=== PATIENT | male | born 1965 | race Caucasian/White ===

== ENCOUNTER 2023-09-30 18:50 | Inpatient (IN) ==
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
[2023-09-30 19:36] LABS: iSTAT Creatinine 1.2 mg/dl (0.6-1.3); iSTAT Ionized Calcium 1.15 mmol/l (1.12-1.32); iSTAT Potassium 3.8 mmol/L (3.3-5.0)
[2023-09-30 19:37] LABS: Base Excess VBG 1.3 mEq/L; HCO3 VBG 27 mmol/L; Oxygen Saturation VBG < 60.0 %; PCO2 VBG 47 mmHg (38-50); PO2 VBG 22 mmHg; pH VBG 7.37 (7.36-7.41)
[2023-09-30] MEDS: SODIUM CHLORIDE 0.9% 1,000 ML IV ONE ×2 (19:45→21:14)
[2023-09-30 19:47] LABS: Basophils # (auto) 0.06 K/uL (0.00-0.20); Basophils % (auto) 0.5 %; Eosinophils # (auto) 0.26 K/uL (0.00-0.50); Hemoglobin 16.4 g/dl (14.0-18.0); Immature Granulocytes # (auto) 0.04 K/uL (0.01-0.20); Immature Granulocytes % (auto) 0.3 %; Lymphocytes # (auto) 2.49 K/uL (1.20-3.40); Lymphocytes % (auto) 19.5 %; Mean Corpuscular Hemoglobin 27.7 pg (25.0-34.0); Mean Corpuscular Hgb Conc 34.2 g/dL (32.0-36.0); Mean Corpuscular Volume 81.2 fL (80.0-100.0); Mean Platelet Volume 10.3 fL (9.4-12.4); Monocytes # (auto) 0.84 K/uL (0.11-0.59); Monocytes % (auto) 6.6 %; Neutrophils # (auto) 9.06 K/uL (1.40-6.50); Neutrophils % (auto) 71.1 %; Platelet Count 273 K/uL (130-400); RDW Coefficient of Variation 12.4 % (11.5-14.5); RDW Standard Deviation 36.5 fL (36.4-46.3); Red Blood Count 5.91 M/uL (4.70-6.10); White Blood Count 12.75 K/ul (4.8-10.8)
[2023-09-30 19:57] LABS: Albumin Level 4.8 gm/dl (3.4-5.0); BUN Creatinine Ratio 10.7 (10-20); Bilirubin Direct 0.2 mg/dl (0-0.2); Bilirubin,Total 1.1 mg/dl (0.2-1.0); Calcium 10.1 mg/dl (8.6-10.3); Creatinine Clr Calc Pharmacy 81.3 ml/min; Est GFR (African American) 69.6 ml/min; Potassium 5.6 mmol/L (3.5-5.1); Total Protein 8.1 gm/dl (6.0-8.3)
[2023-09-30 20:03] LABS: Troponin I High Sensitivity 4.6 pg/ml (0-20)
[2023-09-30 20:06] LABS: Partial Thromboplastin Ratio 0.9; Partial Thromboplastin Time 23 Seconds (21-31); Prothrombin Time 10.8 Seconds (9.0-12.0)
--- NOTE | 2023-09-30 20:33 | CT Scan Report ---
Exam(s): CTA CHEST IV Amt: 118 ml optiray 320 EXAM: CT Angiography Chest With Intravenous Contrast CLINICAL HISTORY: Reason for exam: PE. TECHNIQUE: Axial computed tomographic angiography images of the chest with intravenous contrast. CTDI is 28 mGy and DLP is 1529 mGy-cm. Automated exposure control was utilized for the study. A dose lowering technique was utilized adhering to the principles of ALARA. MIP reconstructed images were created and reviewed. COMPARISON: None FINDINGS: Pulmonary arteries: Unremarkable. No pulmonary embolus identified. Aorta: No acute findings. No aortic aneurysm or dissection. Lungs: Mild dependent atelectasis bilaterally. No focal consolidation. Pleural space: Unremarkable. No significant effusion. No pneumothorax. Heart: Unremarkable. No cardiomegaly. No significant pericardial effusion. No evidence of RV dysfunction. Mediastinum: Small hiatal hernia. Bones/joints: Degenerative changes of the spine. No acute fracture. No dislocation. Soft tissues: Unremarkable. Lymph nodes: Unremarkable. No enlarged lymph nodes. IMPRESSION: 1. No pulmonary embolus identified. 2. No aortic aneurysm or dissection. 3. No acute pulmonary parenchymal abnormality identified. Electronically signed by: Agnes Adair M.D. 09/30/23 20:32 PM
--- NOTE | 2023-09-30 20:35 | CT Scan Report ---
Exam(s): CT ABDOMEN + PELVIS With Contrast IV Amt: 118 ml optiray 320 EXAM: CT Abdomen and Pelvis With Intravenous Contrast CLINICAL HISTORY: Reason for exam: syncope. TECHNIQUE: Axial computed tomography images of the abdomen and pelvis with intravenous contrast. CTDI is 26.91 mGy and DLP is 1529 mGy-cm. Automated exposure control was utilized for the study. A dose lowering technique was utilized adhering to the principles of ALARA. CONTRAST: Patient received 118 ml optiray 320 of IV contrast COMPARISON: None FINDINGS: Lung bases: Mild dependent atelectasis bilaterally. Mediastinum: Small hiatal hernia. ABDOMEN: Liver: Unremarkable. No mass. Gallbladder and bile ducts: Cholelithiasis. No ductal dilation. Pancreas: Unremarkable. No mass. No ductal dilation. Spleen: Small splenule. Adrenals: Nonspecific small left adrenal nodule. Kidneys and ureters: Excreting contrast in the renal collecting systems. No hydronephrosis. Stomach and bowel: Mild prominence of the ashby of the ascending colon and transverse colon may be secondary to under distention. Colitis is not excluded. No small bowel obstruction. PELVIS: Appendix: Normal appendix. Bladder: Unremarkable. No mass. Reproductive: Unremarkable as visualized. ABDOMEN and PELVIS: Intraperitoneal space: Unremarkable. No free air. No significant fluid collection. Bones/joints: Degenerative changes of the spine. No acute fracture. No dislocation. Soft tissues: Small fat-containing bilateral inguinal hernias. Small fat-containing umbilical hernia. Vasculature: Unremarkable. No abdominal aortic aneurysm. Lymph nodes: Unremarkable. No enlarged lymph nodes. IMPRESSION: 1. Mild prominence of the ashby of the ascending colon and transverse colon may be secondary to under distention. Colitis is not excluded. 2. Cholelithiasis. Electronically signed by: Agnes Adair M.D. 09/30/23 20:34 PM
--- NOTE | 2023-09-30 20:38 | CT Scan Report ---
Exam(s): CT C SPINE EXAM: CT Cervical Spine Without Intravenous Contrast CLINICAL HISTORY: Reason for exam: fall. TECHNIQUE: Axial computed tomography images of the cervical spine without intravenous contrast. CTDI is 26.6 mGy and DLP is 608 mGy-cm. Automated exposure control was utilized for the study. A dose lowering technique was utilized adhering to the principles of ALARA. COMPARISON: None FINDINGS: Bones: Normal alignment. No acute fracture or bony lesion. Disc spaces: No subluxation. Mild degenerative changes of the spine. Soft tissues: Normal. Other: Paranasal sinus disease. IMPRESSION: No acute traumatic abnormality. Electronically signed by: Agnes Adair M.D. 09/30/23 20:37 PM
--- NOTE | 2023-09-30 20:39 | CT Scan Report ---
Exam(s): CT HEAD Without Contrast EXAM: CT Head Without Intravenous Contrast CLINICAL HISTORY: Reason for exam: syncope. TECHNIQUE: Axial computed tomography images of the head/brain without intravenous contrast. CTDI is 65.32 mGy and DLP is 1098 mGy-cm. Automated exposure control was utilized for the study. A dose lowering technique was utilized adhering to the principles of ALARA. COMPARISON: None FINDINGS: Brain: No acute infarct or hemorrhage. No extra-axial fluid collection. No mass effect or midline shift. Ventricles and sulci: Normal. No ventriculomegaly or intraventricular hemorrhage. Bones: Normal. No bony lesion or acute fracture. Subcutaneous tissues: Normal. Sinuses: Normal. No air-fluid levels or mucosal thickening. Mastoid air cells: Normal. Orbits: Grossly unremarkable. IMPRESSION: No acute intracranial abnormality. Electronically signed by: Agnes Adair M.D. 09/30/23 20:38 PM
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
[2023-09-30 21:08] LABS: Appearance Urine Clear (Clear); Bilirubin Urine Negative (Negative); Blood Urine Negative (Negative); Color Urine Yellow; Glucose Urine UA Negative (Negative); Ketones Urine Negative (Negative); Leukocyte Esterase Urine Negative (Negative); Nitrite Urine Negative (Negative); Protein Urine Negative (Negative); Specific Gravity Urine > 1.045 (1.000-1.030); Urobilinogen Urine Negative (Negative)
[2023-09-30] MEDS: ACETAMINOPHEN 1,000 MG/100 ML VIAL IV STA (22:04)
[2023-09-30 22:06] LABS: Thyroid Stimulating Hormone 10.068 uIu/ml (0.300-4.500)
[2023-09-30 22:41] LABS: T4 Free Thyroxine 0.5 ng/dl (0.61-1.60)
[2023-09-30 22:51] LABS: BUN Creatinine Ratio 11.6 (10-20); Calcium 8.8 mg/dl (8.6-10.3); Est GFR (African American) 84.1 ml/min; Est GFR (Non-African American) 72.5 ml/min; Potassium 4.6 mmol/L (3.5-5.1)
[2023-09-30] MEDS ORDERED: ONDANSETRON INJ 2 MG/ML 2 ML VIAL IV PRN (23:07)
[2023-09-30] MEDS: PLASMA-LYTE A 1,000 ML IV SCH (23:16)
--- NOTE | 2023-10-01 07:01 | XRay Report ---
XR ankle LT min 3V routine HISTORY: 58 years-old Male fall acute left ankle pain status post fall COMPARISON: None TECHNIQUE: 3 views of the left ankle FINDINGS: There is cortical irregularity involving the lateral anterior process calcaneus and dorsal talar neck . Mild to moderate circumferential soft tissue swelling of the ankle. Mild osteoarthritis. Small calc aneal enthesophytes. Os peroneum with type II accessory navicular. IMPRESSION: Subtle acute cortical chip fractures of the lateral anterior process calcaneus and dorsal talar neck. ACT 112: Negative or not required by law. The above report was generated using voice recognition software. It may contain grammatical, syntax o r spelling errors. Electronically signed by: Evens Davis M.D. 10/01/2023 7:00 AM
[2023-10-01] MEDS: CHOLECALCIFEROL 25 MCG (1000 UNITS) TAB PO SCH (08:18)
[2023-10-01] MEDS: ARMOUR THYROID 30 MG TAB PO SCH (08:18)
--- NOTE | 2023-10-01 08:21 | XRay Report ---
XR ankle RT min 3V routine HISTORY: 58 years-old Male fall acute right ankle pain status post fall COMPARISON: None TECHNIQUE: 3 views of the right ankle FINDINGS: Type II accessory navicular. Minimal osteoarthritis. Small calcaneal enthesophytes. No acute fracture , dislocation or osteochondral defect. Unremarkable soft tissues. IMPRESSION: No acute fracture or dislocation. ACT 112: Negative or not required by law. The above report was generated using voice recognition software. It may contain grammatical, syntax o r spelling errors. Electronically signed by: Evens Davis M.D. 10/01/2023 8:19 AM
--- NOTE | 2023-10-01 08:22 | XRay Report ---
XR chest 1V portable HISTORY: 58 years-old Male Sepsis COMPARISON: CTA chest of same day TECHNIQUE: AP view of the chest FINDINGS: Cardiomediastinal and hilar silhouettes are within normal limits. No pneumothorax or pleural effusion . The lungs appear clear. The bones appear grossly intact. IMPRESSION: No acute process. ACT 112: Negative or not required by law. The above report was generated using voice recognition software. It may contain grammatical, syntax o r spelling errors. Electronically signed by: Evens Davis M.D. 10/01/2023 8:20 AM
--- NOTE | 2023-10-01 10:19 | Electrocardiogram Report ---
Test Reason : Blood Pressure : */* mmHG Vent. Rate : 84 BPM Atrial Rate : 84 BPM P-R Int : 160 ms QRS Dur : 102 ms QT Int : 388 ms P-R-T Axes : 35 -25 59 degrees QTcB Int : 458 ms Normal sinus rhythm Minimal voltage criteria for LVH, may be normal variant ( R in aVL ) Nonspecific T wave abnormality Abnormal ECG No previous ECGs available Confirmed by Eric Urban ([id number]) on 10/01/2023 10:18:44 AM Referred By: [facility] Confirmed By: Eric Urban
--- NOTE | 2023-10-01 11:41 | XCELERA ---
[id number] [id number]
[2023-10-01 13:10] LABS: Basophils # (auto) 0.04 K/uL (0.00-0.20); Basophils % (auto) 0.3 %; Eosinophils # (auto) 0.13 K/uL (0.00-0.50); Eosinophils % (auto) 0.9 %; Hematocrit (blood only) 42.5 % (42.0-52.0); Hemoglobin 14.7 g/dl (14.0-18.0); Immature Granulocytes # (auto) 0.05 K/uL (0.01-0.20); Immature Granulocytes % (auto) 0.3 %; Lymphocytes # (auto) 2.68 K/uL (1.20-3.40); Lymphocytes % (auto) 18.5 %; Mean Corpuscular Hemoglobin 28.1 pg (25.0-34.0); Mean Corpuscular Hgb Conc 34.6 g/dL (32.0-36.0); Mean Corpuscular Volume 81.3 fL (80.0-100.0); Mean Platelet Volume 10.4 fL (9.4-12.4); Monocytes # (auto) 1.23 K/uL (0.11-0.59); Monocytes % (auto) 8.5 %; Neutrophils # (auto) 10.36 K/uL (1.40-6.50); Neutrophils % (auto) 71.5 %; Platelet Count 259 K/uL (130-400); RDW Coefficient of Variation 12.5 % (11.5-14.5); Red Blood Count 5.23 M/uL (4.70-6.10); White Blood Count 14.49 K/ul (4.8-10.8)
[2023-10-01 13:28] LABS: BUN Creatinine Ratio 12.2 (10-20); Calcium 9.2 mg/dl (8.6-10.3); Creatinine Clr Calc Pharmacy 128.9 ml/min; Est GFR (African American) 113.8 ml/min; Est GFR (Non-African American) 98.2 ml/min
--- NOTE | 2023-10-01 14:20 | Orthopedic Consultation ---
Date of Service October 01, 2023 Assessment & Plan (1) Left ankle sprain: He was seen and examined by Dr. Mckeon as well. He has an ankle sprain with 2 small avulsion fractures. He can weight bear as tolerated. We will order a compression stocking to help with swelling and a walking boot. He can use the boot for weight bearing for the next month. Okay to remove the boot at rest and for sleeping. Okay to work on ankle range of motion. Follow up as needed as outpatient. Apparently the retirement does not allow the walking boots so we will order an aso brace instead. History of Present Illness Reason for Consultation: . Requesting Physician: . Attending Physician: Luan Villalobos MD . Ector is a 58 year old patient admitted to the Hospitalist service after a syncopal episode yesterday in the shower at retirement. He complains of left ankle pain, mostly anterior and lateral. No other orthopedic complaints at this time. Allergies Allergy/AdvReac Type Severity Reaction Status Date / Time No Known Allergies Allergy Unverified 09/30/23 20:47 Home Medications Medication Instructions Recorded Confirmed Type atorvastatin 40 mg tablet 40 mg PO HS 09/30/23 09/30/23 History cholecalciferol (vitamin D3) 25 25 mcg PO DAILY 09/30/23 09/30/23 History mcg (1,000 unit) tablet (Vitamin D3) thyroid (pork) 90 mg tablet (MIXING TECHNICIAN 90 mg PO DAILY 09/30/23 09/30/23 History Thyroid) Past Med/Surg History Problem List Hyperkalemia Leukocytosis Hypothyroid High cholesterol Left ankle sprain (Acute) Right ankle sprain (Acute) Syncope (Acute) Medical History Anxiety disorder Social History Smoking Status: Never smoker Hx Alcohol Use: No Hx Substance Use: No Preferred Language: Citizen Of [place] Communication Ability: Effective Central Supply Manager Required: No Beliefs That Will Affect Care: Zoroastrian Zoroastrian Beliefs: Yazidi Current Living Situation: Other Current Living Situation Comment: [facility] Assistive Devices: None Review of Systems All systems reviewed & are unremarkable except as noted in HPI & below. Physical Exam .alert and oriented. NAD Left ankle/foot: +swelling, tender to palpation dorsal hindfoot and lateral ankle area. No tenderness medially. No defect in his achilles. Able to dorsiflex, plantarflex, invert and yusuf. NVI. Skin intact. Results & Data Results & Data Laboratory Results . Diagnostic Findings .xrays of the left ankle reviewed and show avulsion fractures likely from the talus and anterior process of the calcaneus. Ankle mortise is well aligned. PG Care Time/CCT Total # of Minutes Spent Total Time Spent with Patient: Total time spent is greater than 50% in coordination of care (as documented) at patient's floor/unit and/or counseling patient: Coding Level of Care Code 09760 IN/OBS CONSULT LVL 3,45M Diagnoses Left ankle sprain S93.402A Encounter type: initial encounter Involved ligament of ankle: unspecified ligament (1) Left ankle sprain Encounter type: initial encounter Involved ligament of ankle: unspecified ligament Qualified Code(s): S93.402A - Sprain of unspecified ligament of left ankle, initial encounter
--- NOTE | 2023-10-01 17:13 | Hospitalist Progress Note ---
Date of Service October 01, 2023 Assessment & Plan (1) Syncope: Plan: neurocardiogenic/vasovagal type physiology had evidence of such based on prodromal symptoms, circumstances (hot shower), elevated Cr and K upon presentation suggesting intravascular volume depletion, etc thus far telemetry, EKG, echo, CTA chest without other cause of his event could consider 30-day monitor but uncertain if that could be done in usp setting and uncertain it would shed more light on alternative etiologies continue hydration overnight (2) Leukocytosis: Plan: stress response to #1? thus far no evidence on exam, extensive imaging, etc that would suggest an infectious etiology follow temps, etc (3) Hyperkalemia: Plan: 2nd DIPIKA - resolved (4) Hypothyroid: Plan: decompensated will inquire about his compliance with current thyroid replacement if compliant will advise increase in dose (5) High cholesterol: Plan: Continue atorvastatin CPK only scantly elevated (6) DIPIKA (acute kidney injury): Plan: Peak Cr 1.3 now Cr <1 2nd to prerenal causes/intra-vascular volume depletion resolved (7) Avulsion fracture of left ankle: Plan: appreciate ortho consultation walking boot or ASO brace advised check 25-OH vit D level am Admission and Anticipated Discharge Date Admission Date: September 30, 2023 Subjective patient reports no dizziness, vertigo, lightheadedness feels well eating reports being very sedentary at the usp due to chronic lumbar spine issues denies infectious symptoms no chest pain or palpitations again confirms he had prodromal dizziness before passing out in the shower Review of Systems Review of Systems: gen - no fevers or chills musculo - mild left ankle pain GI - no N/V/D CV - no chest pain Physical Exam Physical Exam: gen - looks well, NAD mouth - MMM neck - no JVD heart - borderline tachy, s1 s2, no murmur lungs - CTA b/l abd - soft NT ND BS+ ext - no edema, pulses 2+ b/l musculo - no gross deformity of L ankle/foot skin - no rash Results & Data Results & Data Vital Signs (Past 12 Hours) Vital Signs Temp Pulse Pulse Resp BP Pulse Ox O2 Del Method 10/01/23 15:11 36.8 C 98 H 20 145/98 H 96 Room Air 10/01/23 14:27 99 H 10/01/23 11:26 37.2 C 90 18 142/100 H 96 Room Air 10/01/23 10:14 Room Air 10/01/23 07:57 37.3 C 87 20 134/86 95 Room Air 10/01/23 07:29 79 Laboratory Results Laboratory Results - last 48 hr 09/30/23 09/30/23 09/30/23 19:23 19:26 20:45 WBC 12.75 H RBC 5.91 Hgb 16.4 POC Hgb 15.0 Hct 48.0 POC Hct 44 MCV 81.2 MCH 27.7 MCHC 34.2 RDW Std Deviation 36.5 RDW Coeff of Dominick 12.4 Plt Count 273 MPV 10.3 Immature Gran % (Auto) 0.3 Neut % (Auto) 71.1 Lymph % (Auto) 19.5 [place] % (Auto) 6.6 Eos % (Auto) 2.0 Baso % (Auto) 0.5 Neut # (Auto) 9.06 H Lymph # (Auto) 2.49 [place] # (Auto) 0.84 H Eos # (Auto) 0.26 Baso # (Auto) 0.06 Immature Gran # (Auto) 0.04 PT 10.8 INR 1.0 APTT 23 PTT Ratio 0.9 VBG pH 7.37 VBG pCO2 47 VBG pO2 22 VBG HCO3 27 VBG O2 Saturation < 60.0 VBG Base Excess 1.3 POC Sodium 141 Sodium 138 POC Potassium 3.8 Potassium 5.6 H POC Chloride 105 Chloride 104 Carbon Dioxide 26 POC Total CO2 23 L Anion Gap 8 POC Anion Gap 17.0 POC BUN 15 BUN 14 Creatinine 1.31 POC Creatinine 1.2 Est Cr Clr Drug Dosing 81.3 Est GFR ( Amer) 69.6 Est GFR (Non-Af Amer) 60.0 BUN/Creatinine Ratio 10.7 Glucose 144 H POC Glucose (other) 137 H Lactate 2.4 H* Calcium 10.1 POC Ioniz Calcium Frank 1.15 Magnesium 2.0 Total Bilirubin 1.1 H Direct Bilirubin 0.2 AST 32 ALT 42 Alkaline Phosphatase 108 H Total Creatine Kinase Troponin I High Sens 4.6 Total Protein 8.1 Albumin 4.8 Procalcitonin 0.04 TSH 10.068 H Free T4 0.50 L Urine Color Yellow Urine Appearance Clear Urine pH 6.0 Ur Specific [place] > 1.045 H Urine Protein Negative Urine Glucose (UA) Negative Urine Ketones Negative Urine Blood Negative Urine Nitrite Negative Urine Bilirubin Negative Urine Urobilinogen Negative Ur Leukocyte Esterase Negative Nasal Screen MRSA (PCR) 09/30/23 10/01/23 10/01/23 22:24 02:24 12:59 WBC 14.49 H RBC 5.23 Hgb 14.7 POC Hgb Hct 42.5 POC Hct MCV 81.3 MCH 28.1 MCHC 34.6 RDW Std Deviation 37.0 RDW Coeff of Dominick 12.5 Plt Count 259 MPV 10.4 Immature Gran % (Auto) 0.3 Neut % (Auto) 71.5 Lymph % (Auto) 18.5 [place] % (Auto) 8.5 Eos % (Auto) 0.9 Baso % (Auto) 0.3 Neut # (Auto) 10.36 H Lymph # (Auto) 2.68 [place] # (Auto) 1.23 H Eos # (Auto) 0.13 Baso # (Auto) 0.04 Immature Gran # (Auto) 0.05 PT INR APTT PTT Ratio VBG pH VBG pCO2 VBG pO2 VBG HCO3 VBG O2 Saturation VBG Base Excess POC Sodium Sodium 139 138 POC Potassium Potassium 4.6 4.0 POC Chloride Chloride 107 106 Carbon Dioxide 27 26 POC Total CO2 Anion Gap 5 6 POC Anion Gap POC BUN BUN 13 10 Creatinine 1.12 0.82 D POC Creatinine Est Cr Clr Drug Dosing 95.0 128.9 Est GFR ( Amer) 84.1 113.8 Est GFR (Non-Af Amer) 72.5 98.2 BUN/Creatinine Ratio 11.6 12.2 Glucose 152 H 108 H POC Glucose (other) Lactate 2.3 H* Calcium 8.8 9.2 POC Ioniz Calcium Frank Magnesium 2.0 Total Bilirubin Direct Bilirubin AST ALT Alkaline Phosphatase Total Creatine Kinase 299 H Troponin I High Sens Total Protein Albumin Procalcitonin TSH Free T4 Urine Color Urine Appearance Urine pH Ur Specific [place] Urine Protein Urine Glucose (UA) Urine Ketones Urine Blood Urine Nitrite Urine Bilirubin Urine Urobilinogen Ur Leukocyte Esterase Nasal Screen MRSA (PCR) Negative PG Care Time/CCT Total # of Minutes Spent Total Time Spent with Patient: Total time spent is greater than 50% in coordination of care (as documented) at patient's floor/unit and/or counseling patient: Coding Level of Care Code 85484 SUB INP/OBS CARE 3/50MIN Diagnoses Syncope R55 Syncope type: unspecified Leukocytosis D72.829 Hyperkalemia E87.5 Hypothyroid E03.9 High cholesterol E78.00 DIPIKA (acute kidney injury) N17.9 Avulsion fracture of left ankle S82.892A (1) Syncope Syncope type: unspecified Qualified Code(s): R55 - Syncope and collapse
[2023-10-01] MEDS: SODIUM CHLORIDE 0.9% 1,000 ML IV SCH (17:33)
[2023-10-01] MEDS: ATORVASTATIN 40 MG TAB PO SCH (20:10)
[2023-10-02 07:29] LABS: BUN Creatinine Ratio 10.4 (10-20); Calcium 8.6 mg/dl (8.6-10.3); Creatinine Clr Calc Pharmacy 136.7 ml/min; Est GFR (African American) 116.8 ml/min; Est GFR (Non-African American) 100.7 ml/min; Potassium 3.7 mmol/L (3.5-5.1)
[2023-10-02 08:59] LABS: Basophils # (auto) 0.06 K/uL (0.00-0.20); Basophils % (auto) 0.5 %; Eosinophils # (auto) 0.22 K/uL (0.00-0.50); Eosinophils % (auto) 1.9 %; Hematocrit (blood only) 41.7 % (42.0-52.0); Hemoglobin 14.4 g/dl (14.0-18.0); Immature Granulocytes # (auto) 0.06 K/uL (0.01-0.20); Immature Granulocytes % (auto) 0.5 %; Lymphocytes # (auto) 2.09 K/uL (1.20-3.40); Lymphocytes % (auto) 18.1 %; Mean Corpuscular Hemoglobin 28.1 pg (25.0-34.0); Mean Corpuscular Hgb Conc 34.5 g/dL (32.0-36.0); Mean Corpuscular Volume 81.4 fL (80.0-100.0); Mean Platelet Volume 10.1 fL (9.4-12.4); Monocytes # (auto) 1.18 K/uL (0.11-0.59); Monocytes % (auto) 10.2 %; Neutrophils # (auto) 7.92 K/uL (1.40-6.50); Neutrophils % (auto) 68.8 %; Platelet Count 218 K/uL (130-400); RDW Coefficient of Variation 12.4 % (11.5-14.5); RDW Standard Deviation 37.1 fL (36.4-46.3); Red Blood Count 5.12 M/uL (4.70-6.10); White Blood Count 11.53 K/ul (4.8-10.8)
[2023-10-02 11:10] LABS: Influenza A virus by PCR Negative (Neg); Influenza B virus by PCR Negative (Neg); RSV by PCR Negative (Neg); SARS CoV2 RNA(COVID-19) Ceph NEGATIVE (Negative)
[2023-10-02] MEDS: ACETAMINOPHEN 325 MG TAB PO PRN (12:50)
[2023-10-02] MEDS: METOPROLOL TARTRATE 25 MG TAB PO ONE (16:35)
--- NOTE | 2023-10-02 19:20 | Hospitalist Progress Note ---
Date of Service October 02, 2023 Assessment & Plan (1) Syncope: Plan: neurocardiogenic/vasovagal type physiology had evidence of such based on prodromal symptoms, circumstances (hot shower), elevated Cr and K upon presentation suggesting intravascular volume depletion, etc thus far telemetry, EKG, echo, CTA chest without other cause of his event could consider 30-day monitor but uncertain if that could be done in correction setting and uncertain it would shed more light on alternative etiologies orthostatic BPs are negative for drop in BP from supine to standing position, but he is having postural tachycardic (HR rising from 70s to 110 with supine to standing position) this is POTS-like symptomatology etiology uncertain cortisol checked - 10, which is normal - but will perform formal cosyntropin stim test tomorrow in meantime - to treat postural tachycardia - metoprolol 12.5mg BID (2) Leukocytosis: Plan: stress response to #1? thus far no evidence on exam, extensive imaging, etc that would suggest an infectious etiology wbc count improving w/o any specific intervention follow temps, cbc, etc (3) Hyperkalemia: Plan: 2nd DIPIKA - resolved (4) Hypothyroid: Plan: decompensated he reports he was changed from synthroid to armour thyroid about 4-6 weeks ago at the correction has been compliant with current thyroid replacement will increase armour thyroid to 120mg daily starting tomorrow (5) High cholesterol: Plan: Continue atorvastatin CPK only scantly elevated (6) DIPIKA (acute kidney injury): Plan: Peak Cr 1.3 now Cr 0.7 2nd to prerenal causes/intra-vascular volume depletion resolved (7) Avulsion fracture of left ankle: Plan: appreciate ortho consultation walking boot or ASO brace advised replace low vit D (8) Vitamin D insufficiency: Plan: 25 OH vit D level = 20.8 replace with PO supplementation (9) Low grade fever: Plan: blood cx from admission negative u/a not suspicious for UTI extensive CT imaging from admission w/o source of infection obtained COVID/flu/RSV swab today - negative etiology of low-grade temp?? wbc count is normalizing without intervention or antibiotics simply follow fever curve follow cbcs Plan no d/c today plan cosyntropin stim test tomorrow am Admission and Anticipated Discharge Date Admission Date: September 30, 2023 Subjective tele overnight wnl pt reports overall feeling well had low-grade temp of 37.8 late last pm but he did not even notice such no chills/rigors no headache no URI symptoms no cough no N/V/D no dysuria eating well orthostatic BPs - negative for drop in BP, but HR continues to rise with going from supine to standing position he reported 1 episode of mild spinning sensation today but otherwise it is a lightheadedness/dizziness Review of Systems Review of Systems: cv - no chest pain pulm - no dyspnea on exertion GI - no abd pain musculo - left ankle pain with ambulation/weight-bearing Physical Exam Physical Exam: gen - looks well, NAD mouth - MMM neck - no JVD heart - RRR, s1 s2, no murmur lungs - CTA b/l abd - soft NT ND BS+ ext - no edema, pulses 2+ b/l musculo - no gross deformity of L ankle/foot skin - no rash Results & Data Results & Data Vital Signs (Past 12 Hours) Vital Signs Temp Pulse Pulse Resp BP Pulse Ox O2 Del Method 10/02/23 18:00 36.4 C L 93 H 18 131/85 93 Room Air 10/02/23 16:08 37.1 C 92 H 18 130/85 91 Room Air 10/02/23 14:00 112 H 10/02/23 11:39 36.6 C 95 H 18 147/96 H 94 Room Air 10/02/23 08:00 Room Air 10/02/23 07:53 36.5 C 94 H 18 152/96 H 94 Room Air Laboratory Results Laboratory Results - last 24 hr 10/02/23 10/02/23 10/02/23 06:56 08:41 10:13 WBC 11.53 H RBC 5.12 Hgb 14.4 Hct 41.7 L MCV 81.4 MCH 28.1 MCHC 34.5 RDW Std Deviation 37.1 RDW Coeff of Dominick 12.4 Plt Count 218 MPV 10.1 Immature Gran % (Auto) 0.5 Neut % (Auto) 68.8 Lymph % (Auto) 18.1 [place] % (Auto) 10.2 Eos % (Auto) 1.9 Baso % (Auto) 0.5 Neut # (Auto) 7.92 H Lymph # (Auto) 2.09 [place] # (Auto) 1.18 H Eos # (Auto) 0.22 Baso # (Auto) 0.06 Immature Gran # (Auto) 0.06 Sodium 139 Potassium 3.7 Chloride 106 Carbon Dioxide 27 Anion Gap 6 BUN 8 Creatinine 0.77 Est Cr Clr Drug Dosing 136.7 Est GFR ( Amer) 116.8 Est GFR (Non-Af Amer) 100.7 BUN/Creatinine Ratio 10.4 Glucose 102 H Calcium 8.6 C-Reactive Protein 2.44 H 25-OH Vitamin D Total 20.8 L Random Cortisol SARS-CoV-2 (PCR) NEGATIVE Influenza Type A (PCR) Negative Influenza Type B (PCR) Negative RSV (RT-PCR) Negative 10/02/23 13:55 WBC RBC Hgb Hct MCV MCH MCHC RDW Std Deviation RDW Coeff of Dominick Plt Count MPV Immature Gran % (Auto) Neut % (Auto) Lymph % (Auto) [place] % (Auto) Eos % (Auto) Baso % (Auto) Neut # (Auto) Lymph # (Auto) [place] # (Auto) Eos # (Auto) Baso # (Auto) Immature Gran # (Auto) Sodium Potassium Chloride Carbon Dioxide Anion Gap BUN Creatinine Est Cr Clr Drug Dosing Est GFR ( Amer) Est GFR (Non-Af Amer) BUN/Creatinine Ratio Glucose Calcium C-Reactive Protein 25-OH Vitamin D Total Random Cortisol 10.09 SARS-CoV-2 (PCR) Influenza Type A (PCR) Influenza Type B (PCR) RSV (RT-PCR) PG Care Time/CCT Total # of Minutes Spent Total Time Spent with Patient: Total time spent is greater than 50% in coordination of care (as documented) at patient's floor/unit and/or counseling patient: Coding Level of Care Code 25683 SUB INP/OBS CARE 3/50MIN Diagnoses Syncope R55 Syncope type: unspecified Leukocytosis D72.829 Hyperkalemia E87.5 Hypothyroid E03.9 High cholesterol E78.00 DIPIKA (acute kidney injury) N17.9 Avulsion fracture of left ankle S82.892A Vitamin D insufficiency E55.9 Low grade fever R50.9 (1) Syncope Syncope type: unspecified Qualified Code(s): R55 - Syncope and collapse
[2023-10-02 20:07] VITALS: RESP 20
[2023-10-02] MEDS: METOPROLOL TARTRATE 25 MG TAB PO SCH (20:33)
[2023-10-02 23:20] VITALS: O2SAT 92
[2023-10-03 04:22] VITALS: TEMP 98.6
[2023-10-03] MEDS: COSYNTROPIN 250 MCG in SYRINGE 4 ML IV ONE (08:18)
[2023-10-03 08:51] LABS: BUN Creatinine Ratio 13.2 (10-20); Calcium 9.3 mg/dl (8.6-10.3); Creatinine Clr Calc Pharmacy 115.6 ml/min; Est GFR (Non-African American) 93.2 ml/min
[2023-10-03] MEDS: ARMOUR THYROID 30 MG TAB PO SCH (09:49)
[2023-10-03 09:52] VITALS: PULSE 79
[2023-10-03 11:22] VITALS: BP 133/89
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
== END 2023-10-03 14:58 | DRG 641 ==
LOC: ED 18:50 → SUATTDRO 21:30 → 2W 21:30
DX: E86.9 Volume depletion, unspecified; E78.5 Hyperlipidemia, unspecified; Y92.148 Other place in prison as the place of occurrence of the external cause; Z20.822 Contact with and (suspected) exposure to COVID-19; Z79.890 Hormone replacement therapy; E87.5 Hyperkalemia; W18.39XA Other fall on same level, initial encounter; R50.9 Fever, unspecified; Z79.899 Other long term (current) drug therapy; D72.829 Elevated white blood cell count, unspecified; E55.9 Vitamin D deficiency, unspecified; E03.9 Hypothyroidism, unspecified; Z66 Do not resuscitate; G90.A Postural orthostatic tachycardia syndrome [POTS]; R55 Syncope and collapse; R29.6 Repeated falls; N17.9 Acute kidney failure, unspecified; S92.022A Displaced fracture of anterior process of left calcaneus, initial encounter for closed fracture; S92.152A Displaced avulsion fracture (chip fracture) of left talus, initial encounter for closed fracture; K80.20 Calculus of gallbladder without cholecystitis without obstruction